=== PATIENT | female | born 1975 | race African-American/Black ===

== ENCOUNTER → 2016-03-01 | Day surgery (SDC) | payer OTHER ==
[~2016-03-01] MED LIST: AMAR4TAB PO; GLIP10TA6 PO; LACTATED RINGER'S 1000 ML INJ 1,000 ML ONE; LIPI80TA PO; LIPI80TA16 PO; LISI-515 PO; METF-324 PO; METF1000 PO; PREV30CA11 PO; PREV30CA36 PO; PRIN20TA2 PO; PROPOFOL 200 MG/20 ML AMP IV ONE; SITA25 PO
== END | disposition home or self-care (01) ==
LOC: ESDC 10:56
PROVIDERS: ATTEND Internal Medicine Gastroenterology
DX: R10.13 Epigastric pain (principal)
CPT/HCPCS: 00740; 43235; J3010; J7120

== ENCOUNTER → 2016-04-05 | Outpatient (CLI) | payer OTHER ==
[~2016-04-05] MED LIST changes: -LACTATED RINGER'S 1000 ML INJ 1,000 ML ONE; -PROPOFOL 200 MG/20 ML AMP IV ONE
[2016-04-05 09:48] LABS: HEMATOCRIT 34.8 % (35.0-46.0); MEAN CELL VOLUME 92.2 FL (80.0-100.0); MEAN CORPUSCULAR HEMOGLOBIN 31.4 PG (27.0-34.0); MEAN CORPUSCULAR HGB CONC 34.1 % (32.0-36.0); PLATELET COUNT 259 TH/MM3 (150-450); RED BLOOD COUNT 3.78 MIL/MM3 (4.00-5.30); RED CELL DISTRIBUTION WIDTH 13.6 % (11.6-17.2); REVIEW FLAG FINAL; WHITE BLOOD COUNT 6.6 TH/MM3 (4.0-11.0)
[2016-04-05 10:15] LABS: ALKALINE PHOSPHATASE 74 U/L (45-117); ALT (GPT) 39 U/L (10-53); ANION GAP 8 MEQ/L (5-15); AST (GOT) 22 U/L (15-37); BICARBONATE 26.7 MEQ/L (21.0-32.0); BLOOD UREA NITROGEN 10 MG/DL (7-18); CHLORIDE 102 MEQ/L (98-107); GLOMERULAR FILTRATION RATE 86 ML/MIN (>89); GLUCOSE,FASTING 227 MG/DL (74-99); HDL CHOLESTEROL 49.6 MG/DL (40.0-60.0); LDL CHOLESTEROL 65 MG/DL (0-99); POTASSIUM 3.9 MEQ/L (3.5-5.1); SODIUM (NA) 137 MEQ/L (136-145); TOTAL BILIRUBIN ADULT 0.3 MG/DL (0.2-1.0)
[2016-04-05 16:35] LABS: HEMOGLOBIN A1a 0.9 %; HEMOGLOBIN A1b 2.3 %; HEMOGLOBIN Ao 81.1 %; HEMOGLOBIN LA1C 2.6 %; HEMOGLOBIN P3 4.1 %
== END ==
LOC: CLAB 09:15
PROVIDERS: ATTEND Family Medicine
DX: E78.5 Hyperlipidemia, unspecified (principal); E11.9 Type 2 diabetes mellitus without complications; I10 Essential (primary) hypertension
CPT/HCPCS: 36415; 80053; 80061; 83036; 85027

== ENCOUNTER 2016-07-22 18:33 | Emergency (ER) | payer OTHER ==
[~2016-07-22] VITALS: Ht 167.6 cm; Wt 98.0 kg
[~2016-07-22 18:33] MED LIST changes: -LIPI80TA PO; -LISI-515 PO; -METF1000 PO; -PREV30CA11 PO; -SITA25 PO
[2016-07-22 18:35] VITALS: BP 199/99; PULSE 82; RESP 20; TEMP 98.8; O2SAT 99
--- NOTE | 2016-07-22 18:45 | PD ---
Physical Exam Date Seen by Provider: Jul 22, 2016 Time Seen by Provider: 18:39 Data Data Last Documented VS Vital Signs Date Time Temp Pulse Resp B/P Pulse Ox O2 Delivery O2 Flow Rate FiO2 07/22/16 18:35 98.8 82 20 199/99 99 Room Air MDM Supervised Visit with KELSEY: No Narrative Course 40 YO F with complaint of "fluttery chest" and tingling, edema of the bilateral LE. PMH of DM. Vitals reviewed. Awaiting bed placement. Alice Barth Jul 22, 2016 18:45
[2016-07-22] MEDS ORDERED: SODIUM CHLORIDE 0.9% FLUSH 10 ML FLUSH IVF PRN (19:45)
[2016-07-22] MEDS ORDERED: ASPIRIN 81 MG CHEW TAB PO ONE (19:45)
--- NOTE | 2016-07-22 19:46 | PD ---
HPI Chief Complaint: Chest Pain Time Seen by Provider: 19:45 Travel History International Travel<30 days: No Contact w/Intl Traveler<30days: No Traveled to known affect area: No History of Present Illness HPI 40-year-old female with a history of diabetes presents to the emergency department for evaluation of heart palpitations, chest pain and lower extremity edema. Patient states that she had a few episodes of palpitations yesterday which has persisted today. States that she is also had a few episodes of midsternal sharp chest pain intermittently today. States she has mild shortness of breath and lightheadedness associated with this pain. States that throughout the day today she's noticed worsening swelling of bilateral ankles and feet. She admits to eating foods high in sodium today. Denies any history of LA or heart disease, has never had a stress test or heart catheterization. States that she has a strong family history of heart disease with multiple relatives dying at young ages from heart attacks. Denies fever, chills, nausea , vomiting, abdominal pain, cough or cold symptoms. No other complaints. PFSH Past Medical History Anxiety: Yes Cancer: No Cardiovascular Problems: No High Cholesterol: Yes Diabetes: Yes Diminished Hearing: No Endocrine: Yes Glaucoma: No Genitourinary: No Hepatitis: No Hiatal Hernia: Yes Hypertension: No Immune Disorder: No Musculoskeletal: No Neurologic: No Psychiatric: No Respiratory: No Thyroid Disease: No : 2 Para: 2 Tubal Ligation: Yes (10/11/1997) Past Surgical History Abdominal Surgery: No Cardiac Surgery: No Ear Surgery: No Endocrine Surgery: No Eye Surgery: No Genitourinary Surgery: No Gynecologic Surgery: Yes (BREAST REDUCTION 04/20, TUBAL 1998, D&C, ABLATION) Oral Surgery: No Pacemaker: No Thoracic Surgery: No Other Surgery: Yes (BREAST REDUCTION APRIL 25, 2006) Social History Alcohol Use: No Tobacco Use: No Substance Use: No Allergies-Medications (Allergen,Severity, Reaction): Coded Allergies: *MDRO Multi-Drug Resistant Organism (Verified Adverse Reaction, Unknown, ) MRSA (wound & blood) 2007 Percocet (Verified Adverse Reaction, Unknown, nausea, 07/22/16) Reported Meds & Prescriptions Reported Meds & Active Scripts Active Reported Metformin (Metformin HCl) 1,000 Mg Tab 1,000 Mg PO BIDPC With meals Lisinopril 20 Mg Tab 20 Mg PO BID Prevacid (Lansoprazole) 30 Mg Capdr 30 Mg PO DAILY Glipizide 10 Mg Tab 10 Mg PO BIDAC Take 30 minutes before a meal Lipitor (Atorvastatin Calcium) 80 Mg Tab 80 Mg PO HS Januvia (Sitagliptin Phosphate) 25 Mg Tab 25 Mg PO DAILY Review of Systems Except as stated in HPI: all other systems reviewed are Neg Physical Exam Narrative GENERAL: Well-nourished and well-developed pleasant female patient in no acute distress who is nontoxic appearing. SKIN: Warm and dry. HEAD: Normocephalic and atraumatic. EYES: No injection, drainage, or hyphema noted. PERRLA. EOMI. ENT: No nasal drainage noted. Oropharynx is clear. NECK: Supple and the trachea is midline. CARDIOVASCULAR: Regular rate and rhythm. RESPIRATORY: Breath sounds are equal bilaterally with no accessory muscle use, wheezing, rhonchi, or crackles. GASTROINTESTINAL: Abdomen is soft, non-tender, and nondistended. MUSCULOSKELETAL: No obvious deformities, swelling, cyanosis, or ecchymosis is present throughout the upper and lower extremities. Patient has full range of motion without any signs of neurovascular compromise. NEUROLOGICAL: Awake, alert, and oriented. Normal speech and gait. Cranial nerves are grossly intact. Data Data Last Documented VS Vital Signs Date Time Temp Pulse Resp B/P Pulse Ox O2 Delivery O2 Flow Rate FiO2 07/22/16 20:31 70 16 167/84 100 Room Air 07/22/16 18:35 98.8 Orders Electrocardiogram (07/22/16 19:44) Ckmb (Isoenzyme) Profile (07/22/16 19:44) Complete Blood Count With Diff (07/22/16 19:44) Comprehensive Metabolic Panel (07/22/16 19:44) Magnesium (Mg) (07/22/16 19:44) Prothrombin Time / Inr (Pt) (07/22/16 19:44) Act Partial Throm Time (Ptt) (07/22/16 19:44) Troponin I (07/22/16 19:44) Chest, Single Ap (07/22/16 19:44) Ecg Monitoring (07/22/16 19:44) Bilateral Bp Monitoring (07/22/16 19:44) Iv Access Insert/Monitor (07/22/16 19:44) Oximetry (07/22/16 19:44) Aspirin Chew (Aspirin Chew) (07/22/16 19:45) Admit Order (Ed Use Only) (07/22/16 22:01) Resp Oxygen Nasal Cannula (07/22/16 ) Electrocardiogram (07/22/16 22:01) Electrocardiogram (07/23/16 01:01) Labs Laboratory Tests Test 07/22/16 21:00 White Blood Count 7.3 TH/MM3 Red Blood Count 3.55 MIL/MM3 Hemoglobin 11.2 GM/DL Hematocrit 32.6 % Mean Corpuscular Volume 92.0 FL Mean Corpuscular Hemoglobin 31.5 PG Mean Corpuscular Hemoglobin 34.2 % Concent Red Cell Distribution Width 13.1 % Platelet Count 221 TH/MM3 Mean Platelet Volume 10.7 FL Neutrophils (%) (Auto) 47.1 % Lymphocytes (%) (Auto) 44.1 % Monocytes (%) (Auto) 6.4 % Eosinophils (%) (Auto) 1.9 % Basophils (%) (Auto) 0.5 % Neutrophils # (Auto) 3.4 TH/MM3 Lymphocytes # (Auto) 3.2 TH/MM3 Monocytes # (Auto) 0.5 TH/MM3 Eosinophils # (Auto) 0.1 TH/MM3 Basophils # (Auto) 0.0 TH/MM3 CBC Comment DIFF FINAL Differential Comment Prothrombin Time 10.5 SEC Prothromb Time International 1.0 RATIO Ratio Activated Partial 26.8 SEC Thromboplast Time Sodium Level 139 MEQ/L Potassium Level 3.7 MEQ/L Chloride Level 103 MEQ/L Carbon Dioxide Level 25.4 MEQ/L Anion Gap 11 MEQ/L Blood Urea Nitrogen 11 MG/DL Creatinine 0.84 MG/DL Estimat Glomerular Filtration 91 ML/MIN Rate Random Glucose 128 MG/DL Calcium Level 8.7 MG/DL Magnesium Level 1.5 MG/DL Total Bilirubin 0.3 MG/DL Aspartate Amino Transf 19 U/L (AST/SGOT) Alanine Aminotransferase 48 U/L (ALT/SGPT) Alkaline Phosphatase 55 U/L Total Creatine Kinase 219 U/L Creatine Kinase MB 0.9 NG/ML Creatine Kinase MB % 0.4 % Troponin I LESS THAN 0.02 NG/ML Total Protein 7.5 GM/DL Albumin 3.6 GM/DL MDM Medical Decision Making Medical Screen Exam Complete: Yes Emergency Medical Condition: Yes Differential Diagnosis Palpitations versus ACS versus pleurisy versus electrolyte abnormality versus hyperglycemia Narrative Course 40-year-old female presents to the emergency department for evaluation of bilateral ankle swelling, palpitations and chest pain. Patient is afebrile. She is initially hypertensive with a blood pressure of 199/99. Otherwise vital signs within normal limits. IV access is obtained, labs are drawn and sent. Patient is administered aspirin. EKG shows normal sinus rhythm with no acute ST elevations or depressions. Chest x-ray is negative for any acute abnormalities. CBC shows mild anemia with a hemoglobin of 11.2, hematocrit 32.6 CMP is unremarkable. CPK is slightly elevated at 219. Troponin is less than 0.02. Coags are unremarkable. Patient has remained stable and without complaint during the emergency department. I discussed all results with the patient. I recommended that she stay in chest pain center for repeat cardiac enzymes, EKGs and possible stress testing. The patient initially agreed but ultimately decided she does not want to stay here in the hospital and instead would like to be discharged home and follow-up as an outpatient. I did discuss with her that should she develop any worsening of symptoms she should return immediately to the emergency department. Patient verbalizes understanding and agreement with treatment plan. I discussed the case with my attending physician Dr. Salcedo who is aware of the patients history, physical examination findings, and treatment plan. Diagnosis Primary Impression: Chest pain Qualified Code: R07.9 - Chest pain, unspecified type Additional Impressions: Heart palpitations Ankle swelling Qualified Code: M25.473 - Ankle swelling, unspecified laterality Referrals: Primary Care Physician Patient Instructions: Chest Pain (ED), General Instructions, Leg Edema (ED) Additional Instructions: We recommended you stay in the chest pain center however you elected to be discharged and follow-up as an outpatient with your PCP. If you have any worsening symptoms such as shortness of breath, difficulty breathing, lightheadedness, syncope, or worsening chest pain please return immediately to the emergency department. Med/Other Pt SpecificInfo: No Change to Meds Disposition: 01 DISCHARGE HOME Condition: Stable Ashlee An Jul 22, 2016 19:46 Ashlee An Jul 22, 2016 19:46
--- NOTE | 2016-07-22 20:22 | RADRPT ---
EXAM DATE/TIME: 07/22/2016 19:56 [facility] COMPARISON: No previous studies available for comparison. INDICATIONS : Chest pain MEDICAL HISTORY : Diabetes mellitus type II. SURGICAL HISTORY : None. ENCOUNTER: Initial ACUITY: 4 - 6 days PAIN SCORE: 2/10 LOCATION: Bilateral chest FINDINGS: A single view of the chest demonstrates the lungs to be symmetrically aerated without evidence of mas s, infiltrate or effusion. The cardiomediastinal contours are unremarkable. Osseous structures are intact. CONCLUSION: No acute disease. Daquan Ulloa MD on July 22, 2016 at 20:20 Board Certified Radiologist. This report was verified electronically.
[2016-07-22 20:31] VITALS: BP 167/84; PULSE 70; RESP 16; O2SAT 100
[2016-07-22] MEDS ORDERED: METF1000 PO (20:31)
[2016-07-22] MEDS ORDERED: PREV30CA11 PO (20:31)
[2016-07-22] MEDS ORDERED: GLIP10TA6 PO (20:31)
[2016-07-22] MEDS ORDERED: LISI-515 PO (20:31)
[2016-07-22] MEDS ORDERED: LIPI80TA PO (20:31)
[2016-07-22] MEDS ORDERED: SITA25 PO (20:31)
[2016-07-22 21:31] LABS: AUTOMATED NEUTROPHIL # 3.4 TH/MM3 (1.8-7.7); BASOPHIL % 0.5 % (0.0-2.0); EOSINOPHIL # 0.1 TH/MM3 (0-0.4); EOSINOPHIL % 1.9 % (0.0-4.0); HEMATOCRIT 32.6 % (35.0-46.0); HEMO FLAGS DIFF FINAL; LYMPH % 44.1 % (9.0-44.0); LYMPHOCYTE # 3.2 TH/MM3 (1.0-4.8); MEAN CORPUSCULAR HEMOGLOBIN 31.5 PG (27.0-34.0); MEAN CORPUSCULAR HGB CONC 34.2 % (32.0-36.0); MONO % 6.4 % (0.0-8.0); NEUT % 47.1 % (16.0-70.0); PLATELET COUNT 221 TH/MM3 (150-450); RED BLOOD COUNT 3.55 MIL/MM3 (4.00-5.30); RED CELL DISTRIBUTION WIDTH 13.1 % (11.6-17.2); WHITE BLOOD COUNT 7.3 TH/MM3 (4.0-11.0)
[2016-07-22 21:41] LABS: APTT (PATIENT) 26.8 SEC (24.3-30.1); PROTHROMBIN TIME - PATIENT 10.5 SEC (9.8-11.6)
[2016-07-22 21:49] LABS: ANION GAP 11 MEQ/L (5-15); AST (GOT) 19 U/L (15-37); BICARBONATE 25.4 MEQ/L (21.0-32.0); BLOOD UREA NITROGEN 11 MG/DL (7-18); CHLORIDE 103 MEQ/L (98-107); GLOMERULAR FILTRATION RATE 91 ML/MIN (>89); MAGNESIUM 1.5 MG/DL (1.5-2.5); POTASSIUM 3.7 MEQ/L (3.5-5.1); SODIUM (NA) 139 MEQ/L (136-145)
[2016-07-22 21:55] LABS: ALKALINE PHOSPHATASE 55 U/L (45-117); ALT (GPT) 48 U/L (10-53); CREATINE KINASE 219 U/L (26-192); TOTAL BILIRUBIN ADULT 0.3 MG/DL (0.2-1.0)
[2016-07-22 22:07] LABS: CKMB 0.9 NG/ML (0.5-3.6)
[2016-07-22] MEDS ORDERED: ONDANSETRON HCL 4 MG/2 ML VIAL IV PRN (22:15)
[2016-07-22] MEDS ORDERED: ACETAMINOPHEN 500 MG CPLT PO PRN (22:15)
[2016-07-22] MEDS ORDERED: SODIUM CHLORIDE 0.9% FLUSH 10 ML FLUSH IV FLUSH PRN (22:15)
[2016-07-22 22:29] VITALS: BP 159/84
[2016-07-23] MEDS ORDERED: SODIUM CHLORIDE 0.9% FLUSH 10 ML FLUSH IV FLUSH SCH (09:00)
--- NOTE | 2016-07-23 17:42 | EKG ---
Date Performed: 07/22/2016 Time Performed: 20:24:33 PTAGE: 40 years EKG: Sinus rhythm NORMAL ECG PREVIOUS TRACING : 05/26/2006 20.40 Compared to prior tracing no significant change DOCTOR: Tram Blair Interpretating Date/Time 07/23/2016 17:40:45
== END 2016-07-22 22:35 | disposition home or self-care (01) ==
LOC: NEPE 18:33
DX: R07.9 Chest pain, unspecified (principal); R00.2 Palpitations; M25.471 Effusion, right ankle; M25.472 Effusion, left ankle; E11.9 Type 2 diabetes mellitus without complications; Z79.84 Long term (current) use of oral hypoglycemic drugs; Z79.899 Other long term (current) drug therapy
CPT/HCPCS: 71010; 80053; 82550; 82552; 83735; 84484; 85025; 85610; 85730; 93005

== ENCOUNTER → 2016-07-26 | Outpatient (CLI) | payer OTHER ==
[~2016-07-26] MED LIST changes: -AMAR4TAB PO; +LIPI80TA PO; -LIPI80TA16 PO; +LISI-515 PO; -METF-324 PO; +METF1000 PO; +PREV30CA11 PO; -PREV30CA36 PO; -PRIN20TA2 PO; +SITA25 PO
[2016-07-26 09:54] LABS: HEMATOCRIT 34.9 % (35.0-46.0); MEAN CELL VOLUME 92.8 FL (80.0-100.0); MEAN CORPUSCULAR HEMOGLOBIN 30.3 PG (27.0-34.0); MEAN CORPUSCULAR HGB CONC 32.7 % (32.0-36.0); PLATELET COUNT 184 TH/MM3 (150-450); RED BLOOD COUNT 3.76 MIL/MM3 (4.00-5.30); RED CELL DISTRIBUTION WIDTH 13.2 % (11.6-17.2); REVIEW FLAG FINAL; WHITE BLOOD COUNT 7.3 TH/MM3 (4.0-11.0)
[2016-07-26 10:29] LABS: ALT (GPT) 39 U/L (10-53); ANION GAP 12 MEQ/L (5-15); AST (GOT) 19 U/L (15-37); BICARBONATE 21.8 MEQ/L (21.0-32.0); BLOOD UREA NITROGEN 13 MG/DL (7-18); CHLORIDE 103 MEQ/L (98-107); GLOMERULAR FILTRATION RATE 95 ML/MIN (>89); GLUCOSE,FASTING 210 MG/DL (74-99); SODIUM (NA) 137 MEQ/L (136-145)
[2016-07-26 10:31] LABS: ALKALINE PHOSPHATASE 54 U/L (45-117); HDL CHOLESTEROL 47.5 MG/DL (40.0-60.0); LDL CHOLESTEROL 133 MG/DL (0-99); TOTAL BILIRUBIN ADULT 0.3 MG/DL (0.2-1.0)
[2016-07-26 16:54] LABS: HEMOGLOBIN A1b 2.3 %; HEMOGLOBIN Ao 81.4 %; HEMOGLOBIN LA1C 2.5 %; HEMOGLOBIN P3 3.9 %
== END ==
LOC: CLAB 09:10
PROVIDERS: ATTEND Family Medicine
DX: E78.5 Hyperlipidemia, unspecified (principal); I10 Essential (primary) hypertension; E11.9 Type 2 diabetes mellitus without complications
CPT/HCPCS: 36415; 80053; 80061; 83036; 85027

== ENCOUNTER → 2016-11-08 | Outpatient (CLI) | payer OTHER ==
[2016-11-08 10:55] LABS: HEMATOCRIT 34.6 % (35.0-46.0); MEAN CELL VOLUME 93.5 FL (80.0-100.0); MEAN CORPUSCULAR HEMOGLOBIN 31.5 PG (27.0-34.0); MEAN CORPUSCULAR HGB CONC 33.6 % (32.0-36.0); PLATELET COUNT 253 TH/MM3 (150-450); RED CELL DISTRIBUTION WIDTH 13.3 % (11.6-17.2); REVIEW FLAG FINAL; WHITE BLOOD COUNT 7.4 TH/MM3 (4.0-11.0)
[2016-11-08 11:08] LABS: ANION GAP 8 MEQ/L (5-15); AST (GOT) 16 U/L (15-37); BICARBONATE 26.9 MEQ/L (21.0-32.0); BLOOD UREA NITROGEN 10 MG/DL (7-18); CHLORIDE 102 MEQ/L (98-107); GLOMERULAR FILTRATION RATE 98 ML/MIN (>89); GLUCOSE,FASTING 186 MG/DL (74-99); POTASSIUM 3.8 MEQ/L (3.5-5.1); SODIUM (NA) 137 MEQ/L (136-145)
[2016-11-08 11:09] LABS: ALT (GPT) 38 U/L (10-53)
[2016-11-08 11:11] LABS: ALKALINE PHOSPHATASE 71 U/L (45-117); HDL CHOLESTEROL 51.2 MG/DL (40.0-60.0); LDL CHOLESTEROL 71 MG/DL (0-99); TOTAL BILIRUBIN ADULT 0.4 MG/DL (0.2-1.0)
[2016-11-08 13:53] LABS: HEMOGLOBIN A1a 1.1 %; HEMOGLOBIN A1b 2.1 %; HEMOGLOBIN Ao 82.1 %; HEMOGLOBIN LA1C 2.5 %; HEMOGLOBIN P3 3.8 %
== END ==
LOC: CLAB 10:25
PROVIDERS: ATTEND Family Medicine
DX: E78.5 Hyperlipidemia, unspecified (principal); I10 Essential (primary) hypertension; E11.9 Type 2 diabetes mellitus without complications
CPT/HCPCS: 36415; 80053; 80061; 83036; 85027

== ENCOUNTER → 2017-01-27 | Outpatient (CLI) | payer OTHER ==
[~2017-01-27] MED LIST changes: -PREV30CA11 PO; +PREV30CA36 PO
[2017-01-27 08:36] LABS: HEMATOCRIT 35.6 % (35.0-46.0); MEAN CELL VOLUME 93.9 FL (80.0-100.0); MEAN CORPUSCULAR HEMOGLOBIN 32.1 PG (27.0-34.0); MEAN CORPUSCULAR HGB CONC 34.2 % (32.0-36.0); PLATELET COUNT 260 TH/MM3 (150-450); RED BLOOD COUNT 3.79 MIL/MM3 (4.00-5.30); RED CELL DISTRIBUTION WIDTH 13.2 % (11.6-17.2); REVIEW FLAG FINAL; WHITE BLOOD COUNT 6.4 TH/MM3 (4.0-11.0)
[2017-01-27 10:33] LABS: ALT (GPT) 79 U/L (10-53); ANION GAP 7 MEQ/L (5-15); AST (GOT) 27 U/L (15-37); BICARBONATE 25.6 MEQ/L (21.0-32.0); BLOOD UREA NITROGEN 9 MG/DL (7-18); CHLORIDE 105 MEQ/L (98-107); GLOMERULAR FILTRATION RATE 93 ML/MIN (>89); GLUCOSE,FASTING 200 MG/DL (74-99); POTASSIUM 4.1 MEQ/L (3.5-5.1); SODIUM (NA) 138 MEQ/L (136-145)
[2017-01-27 10:36] LABS: ALKALINE PHOSPHATASE 71 U/L (45-117); HDL CHOLESTEROL 48.6 MG/DL (40.0-60.0); LDL CHOLESTEROL 86 MG/DL (0-99); TOTAL BILIRUBIN ADULT 0.4 MG/DL (0.2-1.0)
[2017-01-27 11:37] LABS: HEMOGLOBIN A1a 1.1 %; HEMOGLOBIN A1b 2.4 %; HEMOGLOBIN Ao 80.7 %; HEMOGLOBIN LA1C 2.5 %; HEMOGLOBIN P3 4.1 %
== END ==
LOC: CLAB 08:09
PROVIDERS: ATTEND Family Medicine
DX: E11.9 Type 2 diabetes mellitus without complications (principal); E78.5 Hyperlipidemia, unspecified; I10 Essential (primary) hypertension
CPT/HCPCS: 36415; 80053; 80061; 83036; 85027

== ENCOUNTER → 2017-03-10 | Outpatient (CLI) | payer OTHER ==
[2017-03-10 10:55] LABS: ALBUMIN 3.6 GM/DL (3.4-5.0); AST (GOT) 42 U/L (15-37); BICARBONATE 28.1 MEQ/L (21.0-32.0); BLOOD UREA NITROGEN 9 MG/DL (7-18); CHLORIDE 103 MEQ/L (98-107); CREATININE 0.79 MG/DL (0.50-1.00); DIRECT BILIRUBIN ADULT 0.1 MG/DL (0.0-0.2); GLOMERULAR FILTRATION RATE 97 ML/MIN (>89); GLUCOSE,FASTING 180 MG/DL (74-99); SODIUM (NA) 136 MEQ/L (136-145)
[2017-03-10 10:57] LABS: ALT (GPT) 84 U/L (10-53)
[2017-03-10 10:58] LABS: ALKALINE PHOSPHATASE 64 U/L (45-117); TOTAL BILIRUBIN ADULT 0.3 MG/DL (0.2-1.0); TOTAL PROTEIN 8.2 GM/DL (6.4-8.2)
[2017-03-10 17:17] LABS: HEMOGLOBIN A1C 8.8 % (4.3-6.0)
[2017-03-16 13:04] LABS: HEPATITIS A AB IGM NEGATIVE (NEGATIVE); HEPATITIS B CORE AB IGM NEGATIVE (NEGATIVE); HEPATITIS B SURFACE ANTIGEN NEGATIVE (NEGATIVE); HEPATITIS C AB IgG NEGATIVE (NEGATIVE)
== END ==
LOC: CLAB 09:54
PROVIDERS: ATTEND Family Medicine
DX: E11.9 Type 2 diabetes mellitus without complications (principal); R94.5 Abnormal results of liver function studies
CPT/HCPCS: 36415; 80053; 82248; 83036

== ENCOUNTER → 2017-06-07 | Outpatient (CLI) | payer OTHER ==
[2017-06-07 09:29] LABS: HEMATOCRIT 35.3 % (35.0-46.0); HEMOGLOBIN 11.9 GM/DL (11.6-15.3); MEAN CELL VOLUME 94.6 FL (80.0-100.0); MEAN CORPUSCULAR HEMOGLOBIN 31.9 PG (27.0-34.0); MEAN CORPUSCULAR HGB CONC 33.7 % (32.0-36.0); MEAN PLATELET VOLUME 9.4 FL (7.0-11.0); PLATELET COUNT 252 TH/MM3 (150-450); RED BLOOD COUNT 3.73 MIL/MM3 (4.00-5.30); RED CELL DISTRIBUTION WIDTH 13.7 % (11.6-17.2); WHITE BLOOD COUNT 6.4 TH/MM3 (4.0-11.0)
[2017-06-07 10:01] LABS: ALBUMIN 3.7 GM/DL (3.4-5.0); ALT (GPT) 76 U/L (10-53); AST (GOT) 35 U/L (15-37); BICARBONATE 23.5 MEQ/L (21.0-32.0); BLOOD UREA NITROGEN 11 MG/DL (7-18); CALCIUM 9.1 MG/DL (8.5-10.1); CHLORIDE 103 MEQ/L (98-107); CREATININE 0.89 MG/DL (0.50-1.00); GLOMERULAR FILTRATION RATE 85 ML/MIN (>89); GLUCOSE,FASTING 155 MG/DL (74-99); SODIUM (NA) 137 MEQ/L (136-145)
[2017-06-07 10:02] LABS: CHOLESTEROL 194 MG/DL (120-200)
[2017-06-07 10:06] LABS: ALKALINE PHOSPHATASE 55 U/L (45-117); HDL CHOLESTEROL 46.1 MG/DL (40.0-60.0); LDL CHOLESTEROL 103 MG/DL (0-99); TOTAL BILIRUBIN ADULT 0.2 MG/DL (0.2-1.0); TRIGLYCERIDES 224 MG/DL (42-150)
[2017-06-07 15:51] LABS: HEMOGLOBIN A1C 6.8 % (4.3-6.0)
== END ==
LOC: CLAB 08:49
PROVIDERS: ATTEND Family Medicine
DX: E11.9 Type 2 diabetes mellitus without complications (principal); E78.5 Hyperlipidemia, unspecified
CPT/HCPCS: 36415; 80053; 80061; 83036; 85027